=== PATIENT | female | born 1945 | race Two or more races ===

== ENCOUNTER 2018-01-30 12:32 | Emergency (ER) | payer MEDICAID ==
[~2018-01-30] VITALS: Ht 152.4 cm; Wt 61.7 kg
[2018-01-30 13:26] LABS: Basophils # (auto) 0 uL; Basophils % (auto) 0.2 % (0.0-2.0); Eosinophils # (auto) 0.1 uL; Eosinophils % (auto) 1.5 % (0.0-7.0); Hematocrit 36.3 % (36.0-46.0); Hemoglobin 12.5 g/dL (12.2-16.2); Lymphocytes # (auto) 1.5 uL; Lymphocytes % (auto) 17.4 % (10.0-50.0); Mean Corpuscular Hemoglobin 30.5 pg (28.0-32.0); Mean Corpuscular Hgb Conc. 34.4 g/dL (32.0-36.0); Mean Corpuscular Volume 88.6 fL (80.0-100.0); Monocytes # (auto) 0.7 uL; Monocytes % (auto) 8.6 % (0.0-12.0); Neutrophils # (auto) 6.1 uL; Neutrophils % (auto) 72.3 % (37.0-80.0); Platelet Count (auto) 295 10^3/uL (140-450); Red Cell Distribution Width 12.9 % (11.8-14.3); White Blood Cell 8.4 10^3/uL (4.4-10.8)
[2018-01-30 13:40] LABS: INR 1.04 (0.9-1.15); Prothrombin Time 11.1 sec (9.27-12.13)
[2018-01-30 14:00] LABS: Albumin 3.8 g/dL (3.4-5.0); BUN/Creatinine Ratio 19.4; Bilirubin, Total 0.3 mg/dL (0.2-1.0); Calcium 8.7 mg/dL (8.5-10.1); Potassium 3.8 mmol/L (3.5-5.1); Total Protein 7.7 g/dL (6.4-8.2)
[2018-01-30 15:03] LABS: Urine Bacteria NONE SEEN /hpf (None Seen); Urine Blood Negative /uL (Negative); Urine Specific Gravity 1.023 (1.001-1.035); Urine WBC 2 /hpf (0 - 5)
[2018-01-30 15:11] VITALS: BP 135/57
[2018-01-30] MEDS ORDERED: KETOROLAC TROMETH 30 MG/ML 1ML VIAL IV ONE (15:45)
[2018-01-30] MEDS ORDERED: CLINDAMYCIN 600MG IV 50 ML IV ONE (15:45)
[2018-01-30] MEDS ORDERED: cefTRIAXone 1GM/10ml IVPUSH 10 ML IV ONE (15:45)
== END 2018-01-30 16:50 | disposition home or self-care (01) ==
LOC: ER 12:32
DX: L03.116 Cellulitis of left lower limb (principal); I87.8 Other specified disorders of veins
CPT/HCPCS: 36415; 80053; 81001; 85025; 85610; 85730; 93971; 96365; 96375; 99285; J1885; J3490